=== PATIENT | female | born 1960 | race Caucasian/White ===

== ENCOUNTER 2016-12-20 13:04 | Day surgery (SDC) | payer OTHER ==
[2016-12-20] VITALS (15 sets, daily range): BP systolic 106–137; BP diastolic 60–82; PULSE 70–96; RESP 12–22; Ht 162.6 cm; Wt 71.0 kg
[~2016-12-20] VITALS: Ht 162.6 cm; Wt 71.0 kg
[2016-12-20] MEDS ORDERED: NAPR275T83 PO (14:27)
[2016-12-20] MEDS ORDERED: ARIP10TA13 PO (14:27)
[2016-12-20] MEDS ORDERED: DIL125/5 PO (14:31)
[2016-12-20] MEDS ORDERED: PHEN300C2 PO (14:31)
[2016-12-20] MEDS ORDERED: OMEP40CA6 PO (14:31)
[2016-12-20] MEDS ORDERED: SYN1 PO (14:31)
--- NOTE | 2016-12-20 15:27 | HPN ---
Date/Time of Note Date/Time of Note DATE: 12/20/16 TIME: 15:27 Interval H&P Admission Note Pt. seen H&P reviewed: No system changes PATTI FARIA MD Dec 20, 2016 15:27
[2016-12-20] MEDS ORDERED: POLYMYXIN/BACITRACIN 1L IRRIG ONE (15:36)
[2016-12-20] MEDS ORDERED: NEOMYC/POLYMYX/BACIT 30 GM OINT ONE (15:37)
[2016-12-20] MEDS ORDERED: PROPOFOL 20 ML ONE (15:43)
[2016-12-20] MEDS ORDERED: MIDAZOLAM 1 MG/ML 2 ML INJ ONE (15:43)
[2016-12-20] MEDS ORDERED: LIDOCAINE 1% (MDV) 20 ML INJ ONE (15:43)
[2016-12-20] MEDS ORDERED: ACETAMINOPHEN 1000MG/100ML IV 100 ML ONE (15:54)
[2016-12-20] MEDS ORDERED: FAMOTIDINE 20 MG INJ ONE (15:54)
[2016-12-20] MEDS ORDERED: KETOROLAC 30 MG INJ ONE (15:54)
[2016-12-20] MEDS ORDERED: DEXAMETHASONE 4 MG/ML 1 ML INJ ONE (15:54)
[2016-12-20] MEDS ORDERED: ONDANSETRON 4 MG INJ ONE (15:54)
[2016-12-20] MEDS ORDERED: BUPIVACAINE 0.5% (SDV) 30 ML INJ ONE (15:55)
[2016-12-20] MEDS ORDERED: LIDOCAINE 1% (STERILE-PAK) 30 ML INJ ONE (15:55)
[2016-12-20] MEDS ORDERED: POLYMYXIN/BACITRACIN 1L IRRIG IRR ONE (16:09)
[2016-12-20] MEDS ORDERED: DIPHENHYDRAMINE 50 MG INJ IV PRN (16:30)
[2016-12-20] MEDS ORDERED: HYDROmorphONE (0.2 MG/ML) 10ML SYG IV PRN ×2 (16:30)
[2016-12-20] MEDS ORDERED: MEPERIDINE 25 MG INJ IV PRN (16:30)
--- NOTE | 2016-12-20 18:14 | RADRPT ---
PROCEDURE: X-ray fluoroscopy guidance CLINICAL INDICATION: Hardware removal TECHNIQUE: Fluoroscopic guidance was utilized for an intraoperative procedure. COMPARISON: None available FINDINGS: Fluoroscopic guidance was utilized for hardware removal. Hardware is not identified on the spot rad iographs. 41 seconds of fluoroscopy time was utilized for the procedure. 3 fluoroscopic spot image s were obtained IMPRESSION: 1. X-ray fluoroscopic guidance utilized for intraoperative procedure. RPTAT: HH .Ghassan Escobar MD, MD Date Time Electronically viewed and signed by .Ghassan Escobar MD, on 12/20/2016 18:13 .d/
--- NOTE | 2016-12-21 13:16 | OPR ---
DATE OF OPERATION: 12/20/2016 SURGEON: Patti Shah MD PREOPERATIVE DIAGNOSIS: Painful retained hardware. POSTOPERATIVE DIAGNOSIS: Right ankle status post trimalleolar ankle fracture ____ fixation. PROCEDURE PERFORMED: 1. Removal of hardware, right ankle including the medial 3 cannulated screws and lateral plate and screws. 2.. Interpretation of intraoperative fluoroscopy x-ray. ESTIMATED BLOOD LOSS: 50 mL. TOURNIQUET TIME: 20 minutes. COMPLICATIONS: None. DESCRIPTION OF PROCEDURE: Patient taken to the operating room and general anesthetic given with int ubation, 2 grams of Kefzol given for prophylaxis. Tourniquet applied on the right side. He was pre pped and draped in the usual sterile manner, exsanguinated with Esmarch bandage, tourniquet inflated to 300 mmHg. Previous incision was utilized. The patient had a lateral plate on the fibula with s crews that were all removed. On the medial side, there were 3 cannulated screws and 1 washer and t hey were all removed satisfactorily. Wound irrigated with antibiotic solution. X-rays show no resi dual hardware in the ankle ____ with cautery. Fascia closed with 0 Vicryl suture, skin closed with ivon. Compression bandage and antibiotic ointment applied. Anesthetic reversed. The patient ta alexander to recovery in stable condition. Dictated By: PATTI RENEE/JOSE ANTONIO Conf#: [id number] DID#: [id number]
== END 2016-12-20 18:20 | disposition home or self-care (01) ==
LOC: SDS 13:04
PROVIDERS: ATTEND Specialist
DX: T84.84XA Pain due to internal orthopedic prosthetic devices, implants and grafts, initial encounter (principal); Y83.8 Other surgical procedures as the cause of abnormal reaction of the patient, or of later complication, without mention of misadventure at the time of the procedure
CPT/HCPCS: 20680; 73600; 88300; J0131; J1100; J1170; J1885; J2175; J2250; J2405; Z7512; Z7610